=== PATIENT | female | born 1990 | race Caucasian/White ===

== ENCOUNTER 2016-12-01 21:07 | Emergency (ER) | payer BC ==
--- NOTE | ~2016-12-01 | CR63 ---
[facility] A Service [facility] RADIOLOGY TEXT RESULTS PATIENT: [place] LOCATION: SED : [birth year] UNIT #: [id number] AGE: [address]: REILLY GODDARD PA-C SEX: F ORDER DR: [id number] [place] [id number] MR#: [id number] Acc #: [id number] NAME: [place] : 1990 SEX: F STUDY DATE/TIME: 12/01/2016 21:24 UNIT: SED ROOM: STUDY DESCRIPTION: CR Chest 2 View Attending Physician: Reilly Goddard Pa-C Ordering Physician: Staff Doctor Not On Primary Care Physician: No Primary Care Physician MEDICAL IMAGING REPORT This report is preliminary unless electronic signature is present. EXAM PA and lateral chest. DATE OF EXAM 12/01/2016 HISTORY Cough, congestion and shortness of air for 2 weeks. FINDINGS 2 views of the chest demonstrate minimal patchy subsegmental infiltrate or atelectasis in the lateral right base, likely in the right middle lobe. Remainder of the lungs are clear. No pleural effusions. Cardiac size and pulmonary vascularity are normal. IMPRESSION Minimal subsegmental infiltrate or atelectasis in the lateral right base likely in the right middle lobe. Remainder of the lungs are clear. Dictated by... Destin Neville M.D. THIS IS AN ELECTRONICALLY VERIFIED REPORT Destin Neville M.D. at 12/01/2016 11:29 PM DFL/jsagar TD: 12/01/2016 23:16 JOB #: [id number] MEDICAL IMAGING REPORT [facility] A [facility] RADIOLOGY TEXT RESULTS PATIENT: [place] LOCATION: SED : [birth year] UNIT #: [id number] AGE: [address]: REILLY GODADRD PA-C SEX: F ORDER DR: Page 1 of 1
[~2016-12-01 21:07] MED LIST: CATAFLAM PO; PEN-VEE K PO; PHENERGAN DM1 ML PO; ROBAXIN 750750 M1 PO; VIBRAMYCIN100 M1 PO; VICODIN 5/1 TAB 5/50 PO
== END 2016-12-01 22:37 | disposition home or self-care (01) ==
LOC: SED 21:07
DX: J20.9 Acute bronchitis, unspecified (principal); F17.210 Nicotine dependence, cigarettes, uncomplicated
CPT/HCPCS: 71020; 94640; 99284